=== PATIENT | female | born 1980 | race Hispanic/Latino ===

== ENCOUNTER → 2024-08-14 | Outpatient (CLI) | payer OTHER | END | disposition home or self-care (01) | LOC: RAH 14:02 | PROVIDERS: ATTEND Nurse Practitioner Adult Health | DX: N63.11 Unspecified lump in the right breast, upper outer quadrant (principal); N64.4 Mastodynia | CPT/HCPCS: 76641; 77066 ==

== ENCOUNTER → 2024-09-01 | Outpatient (CLI) | payer SELFPAY ==
[2024-09-01 08:41] LABS: INR 1.02 (0.85-1.15)
[2024-09-01 08:43] LABS: PARTIAL THROMBOPLASTIN TIME 28.5 SEC (26.3-35.5)
--- NOTE | 2024-09-01 09:51 | HMCIMG ---
US BREAST BX 1ST LESION IR HISTORY: Right breast nodules COMPARISON: None TECHNIQUE: Informed consent was obtained. Risks and benefits were explained to the patient. A timeout was performed. Patient was prepped and draped in a sterile fashion. Local anesthetics was given as required. Under ultrasound guidance, the largest of right breast nodules at 10:00 measuring 1.4 cm was localized. Ultrasound guidance core biopsy was performed using 14-gauge Bard biopsy gun with coaxial arrangement. At the end of procedure, microsurgical clip was left in place. FINDINGS: 4 core biopsy specimens were obtained. Patient tolerated procedure without complication. Patient left the department in good condition. IMPRESSION: 1. Uncomplicated ultrasound guidance right breast mass biopsy with microsurgical clip placement.
--- NOTE | 2024-09-01 09:55 | NUR ---
U/S GUIDED RT BREAST NODULE BX PROCEDURE PERFORMED BY DR Ronnie LANDERS. TOLERATED PROCEDURE. PUNCTURE SITE TO RT BREAST. X4 SPECIMEN REMOVED. SPECIMEN SENT TO LAB. END OF PROCEDURE AT 0935. DRESSING DRY AND INTACT. NO BLEEDING NOTED. BREAST TISSUE MARKER IN PLACE. DISCHARGE INSTRUCTIONS GIVEN. VERBALIZED UNDERSTANDING. DISCHARGE VIA AMBULATORY. A&O. DENIES PAIN.
== END | disposition home or self-care (01) ==
LOC: RAH 07:55
PROVIDERS: ATTEND Nurse Practitioner Adult Health
DX: N63.11 Unspecified lump in the right breast, upper outer quadrant (principal); D24.1 Benign neoplasm of right breast; Z79.01 Long term (current) use of anticoagulants
CPT/HCPCS: 19083; 85610; 85730; 36415; 88305; A4215 ×2; A4648